=== PATIENT | female | born 1945 | race Caucasian/White ===

== ENCOUNTER 2017-12-19 10:38 | Emergency (ER) | payer MEDICARE, MEDICAID ==
[~2017-12-19] VITALS: Ht 162.6 cm; Wt 102.3 kg
[~2017-12-19 10:38] MED LIST: ALEVE 220MG220 MG PO; ASPIRIN E.C. 8181 MG PO; CALCIUM 6001 TA1; CALCIUM600 M2 PO; COLACE 100100 MG/CAP; COMBIVENT INH14.7 GM IH; FERROUS SULFATE65 MG PO; FOLIC ACID 40400 MCG; K-DUR 2020 MEQ PO; LASIX 40MG TABL40 MG PO; MUCINEX 60600 MG/TA1 PO; MULTIPLE VITAMI1 CAP PO; NEBULIZER AEROS1 DEV; NORCO 325 MG-51 TAB PO; PERCOCET 325 MG1 TAB PO; PLAVIX 75MG TAB75 MG PO; RT ADVAIR 528 DISKUS IH; RT SPIRIVA18 MCG IH; THERAGRAN1 TA1 PO; VENTOLIN0.09 MG IH; VITAMIN C500 MG PO
[2017-12-19 10:44] VITALS: TEMP 98.6
[2017-12-19 11:17] LABS: BASO # 0.1 (0.0-0.2); BASO % 0.7 % (0.0-2.0); EOS # 0.3 (0.0-0.7); EOS % 3.3 % (0-4.0); GRAN # 4.6 (1.4-6.5); HEMATOCRIT 40.7 % (37.0-47.0); HEMOGLOBIN 13.3 g/dl (12.5-16.0); LYMPH # 3.2 (1.2-3.4); LYMPH % 35.7 % (20.0-51.0); MEAN CELL VOLUME 95 fl (80.0-100.0); MEAN CORPUSCULAR HEMOGLOBIN 31 pg (27.0-31.0); MEAN CORPUSCULAR HGB CONC 33 g/dl (33.0-37.0); MEAN PLATELET VOLUME 10.5 fl (7.4-10.4); MONO # 0.8 (0.1-0.6); MONO % 9.1 % (1.7-9.3); PLATELET COUNT 305 K/mm3 (130-400); REDCELL DISTRIBUTION WIDTH-CV 14.1 % (11.5-14.5)
[2017-12-19 11:25] LABS: ALANINE AMINOTRANSFERASE 21 U/L (9-52); ALKALINE PHOSPHATASE 79 U/L (50-136); ANION GAP 10 mmol/L (7-16); AST,SGOT 30 U/L (15-37); BILIRUBIN,TOTAL 0.4 mg/dL (0.0-1.0); BLOOD UREA NITROGEN 30 mg/dL (7-17); C-REACTIVE PROTEIN 1.5 mg/dL (0.0-0.9); CARBON DIOXIDE 26 mmol/L (22-30); CHLORIDE 104 mmol/L (98-107); CREATINE KINASE 32 U/L (30-135); CREATININE, serum 0.96 mg/dL (0.52-1.25); GLUCOSE 87 mg/dL (74-106); POTASSIUM 4.5 mmol/L (3.4-5.0); SODIUM 140 mmol/L (137-145); TOTAL PROTEIN 7.3 gm/dL (6.4-8.2)
[2017-12-19 11:42] LABS: TROPONIN-I < 0.012 ng/mL (0.000-0.034)
[2017-12-19 12:09] LABS: COLLECTION METHOD CATHETER
[2017-12-19 12:24] LABS: MUCOUS Present /lpf; PH 5 (5-8); URINE APPEARANCE Hazy; URINE BACTERIA Moderate /hpf; URINE BILIRUBIN Negative (NEGATIVE); URINE BLOOD Negative (NEGATIVE); URINE COLOR Yellow; URINE GLUCOSE Negative (NEGATIVE); URINE KETONE Trace (NEGATIVE); URINE LEUKOCYTE ESTERASE 1+ (NEGATIVE); URINE NITRATE Negative (NEGATIVE); URINE PROTEIN(semi-quant) Negative (NEGATIVE); URINE UROBILINOGEN Negative (NEGATIVE)
[2017-12-19] MEDS ORDERED: ZITHROMAX Z PA250 MG PO ×2 (12:25)
[2017-12-19] MEDS ORDERED: NORCO 325 MG-51 TAB PO (12:25)
[2017-12-19] MEDS ORDERED: PREDNISONE20 MG PO (12:25)
[2017-12-19] MEDS ORDERED: DOXYCYCLINE 10100 MG PO (12:30)
[2017-12-19 13:04] VITALS: BP 122/63; PULSE 63
== END 2017-12-19 14:00 | disposition home or self-care (01) ==
LOC: COL.ER 10:38
PROVIDERS: Physician Assistant
DX: S09.90XA Unspecified injury of head, initial encounter (principal); N39.0 Urinary tract infection, site not specified; J44.1 Chronic obstructive pulmonary disease with (acute) exacerbation; Z90.89 Acquired absence of other organs; Z87.891 Personal history of nicotine dependence; Z79.82 Long term (current) use of aspirin; Z79.51 Long term (current) use of inhaled steroids; W01.0XXA Fall on same level from slipping, tripping and stumbling without subsequent striking against object, initial encounter; Y92.009 Unspecified place in unspecified non-institutional (private) residence as the place of occurrence of the external cause
CPT/HCPCS: J2270; J2405; J7030

== ENCOUNTER 2018-01-07 10:07 | Inpatient (IN) | payer MEDICARE, MEDICAID ==
[~2018-01-07] VITALS: Ht 162.6 cm; Wt 102.2 kg
[~2018-01-07 10:07] MED LIST changes: +DOXYCYCLINE 10100 MG PO; +PREDNISONE20 MG PO; +ZITHROMAX Z PA250 MG PO
[2018-03-18] VITALS (11 sets, daily range): BP systolic 85–120; BP diastolic 50–69; PULSE 46–63; TEMP 97.8–98.6
[2018-03-18] MEDS ORDERED: CARTIA XT240 MG PO (01:03)
[2018-03-18] MEDS ORDERED: TYLENOL 8 HR PO (01:05)
[2018-03-18] MEDS ORDERED: FLEXERIL 1010 MG/TAB PO (01:06)
[2018-03-18] MEDS ORDERED: ULTRAM 50MG TAB50 MG PO (01:07)
[2018-03-18] MEDS ORDERED: COMBIRESP IH (01:13)
[2018-03-18] MEDS ORDERED: MIRALAX PA17 GM/Dose PO (01:15)
--- NOTE | 2018-03-18 06:56 | NUR ---
report from Emily RAMÍREZ. pt is in surgery at this time.
--- NOTE | 2018-03-18 10:16 | NUR ---
PT TO ROOM 327 PER BED WITH AFSHIN CYTOMETRY TECHNOLOGIST GIVING BEDSIDE REPORT ON ARRIVAL @ 0950. PT IS DROWSEY BUT AROUSES TO VERBAL, LUNGS COARSE THROUGHOUT. ENCOURAGED DEEP BREATH AND COUGH, WHICH PATIENT DID. IV TO PUMP, TEDS BILATERAL DRESSOMG TO RIGHT HIP CDI WITH AQUACEL OVER INCISION.
--- NOTE | 2018-03-18 11:31 | NUR ---
First visit from the dump operator. Patient wanted faith affiliation changed. Typesetting Supervisor made change. No other needs.
--- NOTE | 2018-03-18 15:20 | NUR ---
Patient sleeping when sw attempted to meet with her. Will attempt again later.
--- NOTE | 2018-03-18 16:45 | NUR ---
CPAP IN PLACE AND PT RESTING WITH EYES CLOSED.
--- NOTE | 2018-03-18 20:30 | NUR ---
Assessment completed. Patient is A&O x 4, has had a few times where she thinks it's been a whole day since surgery but is able to reorient herself. VSS, on room air. Home CPAP will be worn through the night. Pain is controlled with current oral regimen. Aquacell dressing to right hip is CDI with an ice pack maintained. Pedal pulses intact. BLE milton hose/scds on. Up with assist x 1 with walker and gait belt, gait is steady. Ambulated approximately 50 feet this evening with staff in the hallway. Voiding with no difficulities, reports that she occassionally has leaking. Tolerating diet with no c/o nausea. INT to left antecubital with intermittent antibiotic. Bed is in a low position with bed alarm on and call light in reach. Patient states that she did want the light on to keep her orientated to where she is incase she gets confused in the night. No other concerns or needs at this time, call light is within reach.
[2018-03-19 00:34] VITALS: BP 99/46; PULSE 59; TEMP 98.1
[2018-03-19 04:15] VITALS: BP 96/48; PULSE 70; TEMP 98.6
--- NOTE | 2018-03-19 05:42 | NUR ---
Patient has rested intermittently through the night, did have some confusion when she woke up thinking she was in her house but was able to reorient herself. Pain remains controlled with current oral medication. Aquacell dressing to right hip remains CDI with an ice pack to the hip. Patient has been up to the bathroom through the night with assist x 1 with staff, gait is steady. INT with intermittent antibiotic to left antecubital. Denies any concerns or needs. Bed remains in a low position with bed alarm on and call light in reach.
--- NOTE | 2018-03-19 07:00 | NUR ---
report from Emily RAMÍREZ>
[2018-03-19 07:57] VITALS: BP 108/46; PULSE 65; TEMP 98.2
[2018-03-19 09:03] LABS: HEMOGLOBIN 11.4 g/dl (12.5-16.0)
[2018-03-19 09:05] LABS: HEMATOCRIT 35.3 % (37.0-47.0)
--- NOTE | 2018-03-19 09:25 | NUR ---
PT UP TO RECLINER FOR BREAKFAST. DRESSING TO RIGHT HIP CDI. DENNIS YOUNG IN TO SEE PT THIS AM. PLAN ON SWING BED IN [place] LATER IN THE WEEK.
--- NOTE | 2018-03-19 10:35 | NUR ---
Follow-up visit; Patient requested visit and thanked Program Medical Director for stopping by. She had request to have a visit from the [employer]. Program Medical Director explained that since she is listed as Orth[employer] on the [employer] Census she will be offered Holy Communion when the Deacons visit today.
[2018-03-19 11:46] VITALS: BP 107/43; PULSE 68; TEMP 98.3
--- NOTE | 2018-03-19 13:09 | NUR ---
SW met with patient to discuss discharge planning. Patient lives in [place] independently. She reports she doesn't have a good relationship with her daughter and doesn't have a ride to [facility] at discharge. SW talked with her about options and informed her that an ambulance would cost. Patient signed a choice form for #1 [facility] and [facility]2 [facility] in [place]. patients PCP is Dr samson and she obtains her medications from [facility]. SW called [facility] transport who reports they cannot do it as they need 3 days for hopsital to hospital transfers. SW called Brittanie at [facility] who said they will accept her and have been expecting the call. She reports patient has a granddaughter that she is close with as well as another friend that took her to the hospital. ANDREA talked with patient who said her granddaughter is busy on sat but she will call Rocio after therapy. ANDREA will follow up with her after therapy to see if she will be able to get a ride.
[2018-03-19 15:40] VITALS: BP 119/93; PULSE 70; TEMP 98.7
[2018-03-19] MEDS ORDERED: ALBUTEROL0.83 MG/ML IH (16:01)
[2018-03-19 20:02] VITALS: BP 119/46; PULSE 76; TEMP 98.3
--- NOTE | 2018-03-19 20:30 | NUR ---
Patient resting in bed watching television at this time. Patient is alert and oriented, answers questions appropriately. Aquacel to right hip is CDI. Patient SBA with walker and gaitbelt, gait is steady, walked approximately 100 feet. Patient currently denies pain or further needs, call light within reach.
[2018-03-20 00:21] VITALS: BP 116/45; PULSE 71; TEMP 96.8
[2018-03-20 03:44] VITALS: BP 123/44; PULSE 62; TEMP 97.9
[2018-03-20 05:27] LABS: HEMATOCRIT 33.5 % (37.0-47.0); HEMOGLOBIN 10.9 g/dl (12.5-16.0)
--- NOTE | 2018-03-20 06:06 | NUR ---
Patient rested well overnight, did administer PRN pain medication once. Aquacel to right hip remains CDI. Patient continues to deny further needs, call light within reach.
[2018-03-20 08:20] VITALS: BP 101/62; PULSE 85; TEMP 97.9
--- NOTE | 2018-03-20 08:30 | NUR ---
PATIENT IS A&O AND SITTING AT END OF BED WITH BREAKFAST TRAY. NO C/O N/V. LEFT AC IV TO INT. AM MEDS GIVEN. RATES PAIN IN RLE AT 4-5 ON PAIN SCALE. GAVE PRN ROXICODONE, TWO TABS BEFORE AM THERAPY. RTH DRESSING IS CD&I WITH AQUACEL. TEDS TO BLE. SCD'S CURRENTLY OFF. POSITIVE PEDAL PULSES TO BLE. NOTED IRREGULAR HEART SOUND WITH RUB. PATIENT HAS HX OF A-FIB. HEAD TO TOE ASSESSMENT COMPLETE. NO OTHER NEEDS. CALL LIGHT IN REACH.
--- NOTE | 2018-03-20 09:11 | NUR ---
ANDREA met with patient who said someone from [place] named Jamila has agreed to transport her tomorrow. ANDREA called Brittanie at [facility] and she verified that she has talked to Jamila about it and she will be here tomorrow by [address] Panchal # [phone] Nurse to nurse # [phone] Will plan on dc 10 am tomorrow ANDREA called and informed [facility] to inform them of patient dc.
[2018-03-20 11:31] VITALS: BP 113/53; PULSE 65; TEMP 97.9
[2018-03-20 16:47] VITALS: BP 114/46; PULSE 59; TEMP 98.4
[2018-03-20 19:39] VITALS: BP 97/49; PULSE 59; TEMP 98.6
--- NOTE | 2018-03-20 20:00 | NUR ---
Patient resting in bed with cpap on at this time. Patient rouses easily and is alert and oriented, answers questions appropriately. Aquacel to right hip is CDI, CMS to right lower extremity is intact. Patient is ambulating and using assistive devices well. Administered once PRN pain medication per patient request, patient denies further needs at this time, call light within reach.
[2018-03-21 03:53] VITALS: BP 107/65; PULSE 58; TEMP 97.6
--- NOTE | 2018-03-21 05:12 | NUR ---
Patient has rested well overnight. Patient had a breif episode of confusion early in the night, quickly reoriented herself. Patient continues to ambulate well with walker and SBA. Patient has had no further complaints of pain overnight, call light within reach.
[2018-03-21 05:51] LABS: HEMOGLOBIN 10.4 g/dl (12.5-16.0)
[2018-03-21 05:52] LABS: HEMATOCRIT 32.3 % (37.0-47.0)
[2018-03-21 08:51] VITALS: BP 128/60; PULSE 59; TEMP 98.2
[2018-03-21] MEDS ORDERED: ASPI325T6 PO (09:37)
[2018-03-21] MEDS ORDERED: ROXICODONE 55 MG/TAB PO (09:38)
[2018-03-21] MEDS ORDERED: TYLENOL 500MG500 MG PO (09:38)
--- NOTE | 2018-03-21 09:42 | NUR ---
Nurse rn case management talked to patient and had her sign IM form. Patient given copy of IM form. She plans to go to [facility] bed at 1000. Orders will be faxed to [phone] as soon as available. Patient's nurse Tatiana has phone number for nurse to nurse report at: [phone]. Care management will continue to follow.
--- NOTE | 2018-03-21 10:20 | NUR ---
Aquacell dressing to right hip CDI. Ambulatory with wheeled walker in room. Report called to nurse at [facility]. Patient denied need for pain medication. Dismissed to [facility] bed.
== END 2018-03-21 10:20 | disposition swing bed (61) | DRG 470 ==
LOC: JCC 03-18 05:29
PROVIDERS: Physician Assistant; ADMIT Orthopaedic Surgery
PROC: 0SR90JA Replacement of Right Hip Joint with Synthetic Substitute, Uncemented, Open Approach (ICD-10-PCS; principal; 2018-03-18 07:30)
DX: M16.11 Unilateral primary osteoarthritis, right hip (principal); Z96.653 Presence of artificial knee joint, bilateral; Z87.891 Personal history of nicotine dependence; I48.91 Unspecified atrial fibrillation; J44.9 Chronic obstructive pulmonary disease, unspecified
CPT/HCPCS: A4314; A9284; C1713; C1776; J0690; J1100; J2250; J2704; J3010; J3370; J7050; J7120

== ENCOUNTER → 2018-03-09 | Outpatient (CLI) | payer MEDICARE, MEDICAID | LOC: COL.LAB 12:21 | DX: Z96.641 Presence of right artificial hip joint (principal) ==